=== PATIENT | female | born 1970 | race African-American/Black ===

== ENCOUNTER 2017-03-02 19:02 | Emergency (ER) | payer MEDICARE ==
[~2017-03-02] VITALS: Ht 167.6 cm; Wt 97.7 kg
[~2017-03-02 19:02] MED LIST: AMBIEN 10MG10 MG PO; AMBIEN12.5 MG PO; ANTIVERT 25MG25 MG PO; AVINZA60 MG PO; BACTRIM 400 MG-1 TAB PO; CEFTIN500 MG PO; CEPHALEXIN500 M1 PO; COLACE 100100 MG/CAP PO; COREG 3.123.125 MG/T PO; DIFLUCAN150 MG PO; DILAUDID 2MG TAB2 MG PO; FENTANYL 100MCG TOP; K-DUR 10 MEQ T10 MEQ PO; KADIAN30 MG PO; LEVAQUIN 5500 MG/TA1 PO; MOTRIN 200200 MG/TAB; MOTRIN 800800 MG/TAB PO; MS CONTIN 330 MG/TAB PO; MULTIPLE VITAMI1 CAP PO; ORTHO TRI-CYCLE1 TAB PO; OTC ALLERGY MED; PERCOCET 325 MG1 TA2 PO; PERCOCET 325 MG1 TAB PO; PERCOCET 650 MG1 TAB PO; PHENERGAN 25 TA25 MG PO; PHENERGAN25 MG RC; PYRIDIUM 100MG100 MG PO; PYRIDIUM200 M1 PO; SEASONIQUE1 TAB PO; SOMA; SOMA 350MG350 MG/TAB PO; SPRINTEC 35 MCG1 TAB PO; ULTRAM 50MG TAB50 MG; VALIUM 5MG T5 MG/TAB PO; VIT D; VITAMIN D 1001000 IU PO; ZANTAC 300300 MG PO; ZESTRIL2.5 MG PO; ZITHROMAX 250M250 MG PO; ZOFRAN 4MG T4 MG/TAB PO
[2017-03-02 19:03] VITALS: TEMP 98.2
[2017-03-02 19:33] VITALS: BP 136/72; PULSE 95
== END 2017-03-02 19:35 | disposition home or self-care (01) ==
LOC: COL.ER 19:02
DX: I80.02 Phlebitis and thrombophlebitis of superficial vessels of left lower extremity (principal)

== ENCOUNTER 2021-12-23 13:15 | Emergency (ER) | payer MEDICARE ==
[~2021-12-23] VITALS: Ht 167.6 cm; Wt 78.6 kg
[2021-12-23 13:23] VITALS: TEMP 98.2
[2021-12-23 14:12] VITALS: BP 105/62; PULSE 110
== END 2021-12-23 15:00 | disposition left against medical advice (07) ==
LOC: COL.ER 13:15
DX: R39.89 Other symptoms and signs involving the genitourinary system (principal)

== ENCOUNTER 2022-01-17 12:36 | Emergency (ER) | payer MEDICARE ==
[~2022-01-17] VITALS: Ht 167.6 cm; Wt 79.5 kg
[2022-01-17 12:46] VITALS: TEMP 98
[2022-01-17 13:28] LABS: BASO % 0.3 % (0.0-2.0); EOS # 0.2 K/mm3 (0.0-0.7); EOS % 1.2 % (0.0-4.0); GRAN # 11.2 K/mm3 (1.4-6.5); GRAN % 81.9 % (42.2-75.2); HEMOGLOBIN 10.9 g/dl (12.5-16.0); LYMPH # 1.4 K/mm3 (1.2-3.4); LYMPH % 10.3 % (20.0-51.0); MEAN CELL VOLUME 90 fl (80.0-100.0); MEAN CORPUSCULAR HEMOGLOBIN 27 pg (27-31); MEAN CORPUSCULAR HGB CONC 30 g/dl (33.0-37.0); MEAN PLATELET VOLUME 10.7 fl (7.4-10.4); MONO # 0.8 K/mm3 (0.1-0.6); MONO % 5.8 % (1.7-9.3); PLATELET COUNT 506 K/mm3 (130-400); RED BLOOD COUNT 4.07 M/mm3 (4.10-5.30); REDCELL DISTRIBUTION WIDTH-CV 17.5 % (11.5-14.5)
[2022-01-17 13:30] LABS: HEMATOCRIT 36.8 % (37.0-47.0)
[2022-01-17 13:45] LABS: ALBUMIN 3.3 gm/dL (3.5-5.0); BILIRUBIN,TOTAL 0.1 mg/dL (0.2-1.2); CREATININE, serum 0.84 mg/dL (0.57-1.11); POTASSIUM 4.6 mmol/L (3.5-4.5); TOTAL PROTEIN 7.7 gm/dL (6.2-8.1)
[2022-01-17] MEDS ORDERED: NORCO 325 MG-51 TAB PO (14:05)
[2022-01-17 14:42] VITALS: BP 105/66; PULSE 77
== END 2022-01-17 14:42 | disposition home or self-care (01) ==
LOC: COL.ER 12:36
PROVIDERS: Physician Assistant
DX: E11.65 Type 2 diabetes mellitus with hyperglycemia (principal); E11.622 Type 2 diabetes mellitus with other skin ulcer; L98.419 Non-pressure chronic ulcer of buttock with unspecified severity; M79.671 Pain in right foot; Z91.040 Latex allergy status